=== PATIENT | female | born 1980 | race Caucasian/White ===

== ENCOUNTER 2021-11-27 16:32 | Emergency (ER) | payer OTHER ==
[~2021-11-27] VITALS: Ht 157.5 cm; Wt 66.7 kg
[2021-11-27] MEDS ORDERED: ANAPROX DS550 MG PO (18:22)
== END 2021-11-27 18:33 | disposition home or self-care (01) ==
LOC: ER 16:57
DX: M25.562 Pain in left knee (principal); M25.561 Pain in right knee; X50.1XXA Overexertion from prolonged static or awkward postures, initial encounter; Y93.01 Activity, walking, marching and hiking; Y92.89 Other specified places as the place of occurrence of the external cause; K21.9 Gastro-esophageal reflux disease without esophagitis
CPT/HCPCS: 99283